=== PATIENT | male | born 1940 | race Caucasian/White ===

== ENCOUNTER 2018-04-27 18:07 | Observation (INO) | payer MEDICARE ==
[~2018-04-27] VITALS: Ht 175.3 cm; Wt 95.3 kg
[2018-04-27] MEDS ORDERED: CARAFATE1 G PO (18:14)
[2018-04-27] MEDS ORDERED: K-TAB10 MEQ PO (18:15)
[2018-04-27] MEDS ORDERED: LIPITOR40 MG PO (18:15)
[2018-04-27] MEDS ORDERED: FLUTICASONE PRO16 GM NASAL (18:15)
[2018-04-27] MEDS ORDERED: COREG12.5 MG PO (18:15)
[2018-04-27] MEDS ORDERED: BAYER CHEWABLE81 MG PO (18:16)
[2018-04-27] MEDS ORDERED: PROTONIX40 MG PO (18:16)
[2018-04-27] MEDS ORDERED: CENTRUM MEN'S1 EACH PO (18:16)
[2018-04-27] MEDS ORDERED: MELATONIN10 M1 PO (18:16)
--- NOTE | 2018-04-27 19:30 | NUR ---
PT PROVIDED URINAL FOR URINE SPECIMEN. PT AWAKE AND ALERT, PT FAMILY AT BEDSIDE.
--- NOTE | 2018-04-27 21:24 | NUR ---
RECEIVED FROM ER VIA STRETCHER. UNABLE TO TRANSFER HIMSELF TO THE BED. ALERT/ORIENTED TO NAME/ ONLY. VS STABLE. IV IN R AC WITH NS INFUSING STARTED IN ER. INFORMED THAT HE HAD FALLEN 4 TIMES IN THE PAST WEEK. STRICT FALL PRECAUTIONS NOTED. FAMILY MEMBERS PRESENT. ORIENTED TO ROOM AND CALL LIGHT.
--- NOTE | 2018-04-27 22:07 | NUR ---
LAB CALLED INFORMING THAT UNIT OF BLOOD IS READY? I DO NOT SHOW AN ORDER TO GIVE BLOOD. PATIENT'S HAS A BLOOD BAND ON AND SEE WHERE THERE WAS A TYPE AND CROSS DONE IN ER. CALLED ALEXA JOYNER "HOMER" RE: NEEDING AN ORDER FOR NUSE TO ADMIN BLOOD AND HOW MANY UNITS.
[2018-04-27 23:50] VITALS: BP 152/69
--- NOTE | 2018-04-27 23:55 | NUR ---
HIS DAUGHTER SIGNED BLOOD CONSENT FORM. PATIENT TO CONFUSED TO SIGN.
--- NOTE | 2018-04-28 00:30 | NUR ---
STARTED UNIT OF PRBC'S ORDERED.
--- NOTE | 2018-04-28 00:50 | NUR ---
VITAL SIGNS STABLE. OBTAINED URINE SPECIMEN FOR LAB ORDERED
[2018-04-28 01:12] VITALS: BP 152/69
[2018-04-28 01:14] LABS: APPEARANCE CLEAR (CLEAR); BILIRUBIN NEGATIVE (NEGATIVE); COLOR YELLOW (YELLOW); GLUCOSE NEGATIVE (NEGATIVE); KETONE NEGATIVE (NEGATIVE); NITRITE NEGATIVE (NEGATIVE); PROTEIN NEGATIVE (NEGATIVE); SPECIFIC GRAVITY 1.015 (1.005-1.020); UROBILINOGEN NORMAL (NORMAL)
--- NOTE | 2018-04-28 03:10 | NUR ---
BLOOD TRANSFUSION COMPLETED. VERY RESTLESS. WILL NOT STAY IN BED. FAMILY MEMBER SHOWED UP AND WILL STAY WITH HIM.
[2018-04-28 03:45] VITALS: BP 146/83
[2018-04-28 05:54] LABS: BASOPHILS 0.2 % (0-2); HEMATOCRIT 33.4 % (42.0-54.0); HEMOGLOBIN 9.1 g/dL (13.5-17.5); IMMATURE GRANULOCYTES 0.2 % (0-5); LYMPHOCYTES 14.6 % (15-50); MCH 21.4 pg (26.0-34.0); MCHC 27.2 g/dL (31.0-37.0); MCV 78.6 fL (80.0-100.0); MONOCYTES 12.8 % (2-11); NEUTROPHILS 69.2 % (40-80); PLATELET COUNT 128 10x3/uL (130-400); RBC 4.25 10x6/uL (4.20-6.10); RDW 17.1 % (11.5-14.5); WBC 5.1 10x3/uL (4.8-10.8)
[2018-04-28 07:04] LABS: ALBUMIN 3.1 g/dL (3.4-5.0); ALKALINE PHOSPHATASE 77 U/L (46-116); ALT (SGPT) 18 U/L (10-68); BILIRUBIN - TOTAL 0.82 mg/dL (0.2-1.3); CALC OSMOLALITY 291 mosm/kg (275-300); CALCIUM 7.8 mg/dL (8.5-10.1); CHLORIDE - SERUM 108 mmol/L (98-107); CKMB 3.2 U/L (0.0-3.6); CREATINE KINASE 264 UL (21-232); CREATININE - SERUM 0.8 mg/dL (0.6-1.3); GLUCOSE 95 mg/dL (74-106); MAGNESIUM - SERUM 1.9 mg/dL (1.8-2.4); POTASSIUM - SERUM 3.4 mmol/L (3.5-5.1); PROTEIN - SERUM 6.4 g/dL (6.4-8.2); SODIUM 146 mmol/L (136-145); UREA NITROGEN 14 mg/dL (7-18); eGFR NON AFRICAN AMERICAN > 90 mL/min (90-120)
[2018-04-28 07:34] LABS: TROPONIN-I 0.121 ng/mL (0.000-0.060)
--- NOTE | 2018-04-28 07:59 | NUR ---
REPORT RECEIVED. WILL CONTINUE WITH POC. PT CURRENTLY LYING SEMI FOWLERS. CALL LIGHT W/I REACH. PT IS AA AND ONLY ORIENTED TO PERSON AND SITUATION AND WITH GARBLED SPEECH. RR EVEN AND UNLABORED ON 2L 02. NO S/S OF DISTRESS NOTED. PT ASSISTED WITH URINAL WHERE PT VOIDED 150ML OF PALE YELLOW URINE. CLEANED PT AND APPLIED NEW GOWN. PT DENIES ANY NEEDS AT THIS TIME. WILL CTM.
[2018-04-28 08:51] VITALS: BP 186/100
--- NOTE | 2018-04-28 09:00 | NUR ---
PT BP @0800 WAS 186/100. ADMINISTERED ORDERED DOSE OF CLONIPIN AND BP DECREASED TO 166/85. PLACED TELEMETRY ON PT AND PT IS RUNNING 65 NORMAL SINUS RHYTHYM. WILL CTM.
[2018-04-28 12:39] VITALS: BP 177/101
[2018-04-28 13:36] VITALS: BMI 31.0
--- NOTE | 2018-04-28 13:38 | NUR ---
FIRST EKG PERFORMED AND PLACED IN CHART. 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 WILL CTM.
--- NOTE | 2018-04-28 14:15 | NUR ---
AGREE WITH VAC PRESS OPERATOR ASSESSMENT
[2018-04-28 15:12] LABS: CKMB 2.4 U/L (0.0-3.6); CREATINE KINASE 235 UL (21-232)
[2018-04-28 15:16] LABS: TROPONIN-I 0.107 ng/mL (0.000-0.060)
[2018-04-28 16:48] VITALS: Ht 175.3 cm; Wt 95.3 kg
--- NOTE | 2018-04-28 17:01 | NUR ---
PT CONTINUES TO HAVE EPISODES OF INTCONTINENCE AND SKIN STAYS SATURATED IN SPITE OF EFFORTS TO KEEP PT CLEAN. CALLED [facility]IN[facility] HARPER TO CHECK ABOUT POSSIBLE DAVEY PLACEMENT AND RECEIVED ORDERS FOR ACCURATE I&O DAVEY CATHETER PLACEMENT TO PREVENT FURTHER SKIN BREAKDOWN. WILL PLACE ORDER AND PLACE DAVEY CATHETER.
[2018-04-28 17:33] VITALS: BP 152/97
--- NOTE | 2018-04-28 17:44 | NUR ---
PLACED 16 [place] DAVEY CATHETER INTO PT PER DR ORDERS. RECEIVED IMMEDIATE 600ML OF MODERATE YELLOW URINE. STAT ELIUD PLACED AND DAVEY IN PLACE DRAINING URINE. PT TOLERATED WELL. WILL CTM.
[2018-04-28 20:00] VITALS: BP 160/91
--- NOTE | 2018-04-28 20:00 | NUR ---
HAVING ULTRASOUND DONE IN ROOM. FAMILY MEMBERS PRESENT.
[2018-04-28 20:01] LABS: CKMB 1.7 U/L (0.0-3.6); CREATINE KINASE 176 UL (21-232)
[2018-04-28 20:05] LABS: TROPONIN-I 0.093 ng/mL (0.000-0.060)
--- NOTE | 2018-04-28 20:30 | NUR ---
SET UP SUCTION FOR PATIENT'S EXCESSIVE SECRETIONS. ELEVATED HOB.
--- NOTE | 2018-04-28 21:40 | NUR ---
RECEIVING RESP UPDRAFT TX. FAMILY C/O HIS RESTLESSNESS, TRYING TO GET OUT OF BED, PULLING ON IV, TAMICA.
--- NOTE | 2018-04-28 23:45 | NUR ---
CALLED [facility] BURKETT APN TO INFORM OF PATIENT'S AGITATION, PULLING ON IV, DAVEY. ORDERED ATIVAN 0.5MG IV Q8H.
[2018-04-29] VITALS: BP 153/81
[2018-04-29 02:05] LABS: CREATINE KINASE 188 UL (21-232)
[2018-04-29 02:06] LABS: TROPONIN-I 0.103 ng/mL (0.000-0.060)
--- NOTE | 2018-04-29 02:09 | NUR ---
PULLED OUT IV. SWING HIS FIST AT ME AND KICKING WHILE I WAS TRYING TO HOLD 2X2 TO STOP THE BLEEDING. GROUP SUPERVISOR YARD'S ARRIVE TO ASSIST. CALLED [facility]URK[facility] AND RECEIVED ORDER TO GIVE GEODON 20MG PO BID PRN FOR HIS AGITATION. FAMILY MEMBER IS NOW PRESENT IN ROOM WITH HIM.
--- NOTE | 2018-04-29 02:35 | NUR ---
SWALLOWED THE GEODON CAP AFTER SPITTING IT OUT 4 TIMES. SOME OF THE POWDER CONTENTS SPILLED OUT ON HIS GOWN. HOPEFUL GOT ENOUGH TO HELP HIM.
[2018-04-29 04:00] VITALS: BP 175/83
--- NOTE | 2018-04-29 04:36 | NUR ---
RESITED IV IN LEFT FA 20G. CUFF SLITTER ASSITED WITH HOLDING HIS ARM.
--- NOTE | 2018-04-29 06:30 | NUR ---
REPOSITIONED UP IN BACK AND TO RIGHT SIDE WITH PILLOW TO HIS BACK. SUCTION EXCRETIONS FROM HIS MOUTH. SNORING LOUDLY. LEGS AND ARMS ARE JERKY.
[2018-04-29 06:44] LABS: ALBUMIN 3.2 g/dL (3.4-5.0); ALKALINE PHOSPHATASE 90 U/L (46-116); ALT (SGPT) 16 U/L (10-68); BILIRUBIN - TOTAL 1.03 mg/dL (0.2-1.3); CALC OSMOLALITY 289 mosm/kg (275-300); CALCIUM 7.9 mg/dL (8.5-10.1); CARBON DIOXIDE 32.3 mmol/L (21.0-32.0); CHLORIDE - SERUM 105 mmol/L (98-107); CREATININE - SERUM 0.8 mg/dL (0.6-1.3); GLUCOSE 113 mg/dL (74-106); POTASSIUM - SERUM 3.6 mmol/L (3.5-5.1); PROTEIN - SERUM 6.6 g/dL (6.4-8.2); SODIUM 145 mmol/L (136-145); UREA NITROGEN 13 mg/dL (7-18); eGFR NON AFRICAN AMERICAN > 90 mL/min (90-120)
[2018-04-29 07:09] LABS: BASOPHILS 0.3 % (0-2); EOSINOPHILS 1.5 % (0-7); HEMATOCRIT 36.1 % (42.0-54.0); HEMOGLOBIN 9.8 g/dL (13.5-17.5); IMMATURE GRANULOCYTES 0.5 % (0-5); LYMPHOCYTES 11.3 % (15-50); MCH 21.5 pg (26.0-34.0); MCHC 27.1 g/dL (31.0-37.0); MCV 79.2 fL (80.0-100.0); MONOCYTES 8.8 % (2-11); NEUTROPHILS 77.6 % (40-80); PLATELET COUNT 140 10x3/uL (130-400); RBC 4.56 10x6/uL (4.20-6.10); RDW 17.1 % (11.5-14.5); WBC 7.8 10x3/uL (4.8-10.8)
--- NOTE | 2018-04-29 08:00 | NUR ---
RESPIRATORY ARRIVES TO ROOM FOR MORNING UPDRAFT. PATIENT STOPS BREATHING. NO PULSE PALPATED. CODE BLUE CALLED. SPOKE WITH FAMILY REGARDING CODE STATUS. FAMILY REFUSE INTUBATION. MED CODE ONLY. SEE CODE SHEET ON CHART.
--- NOTE | 2018-04-29 09:54 | NUR ---
WENT INTO PT ROOM TO GIVE BREATHING TX, PT SNORING LOUDLY, SPIT IN PTS MOUTH, SUCKED OUT WITH YAUNKER, BREATHING TX STARTED. CHARTING ON COMPUTER WHEN FAMILY COMES IN, PT SNORING, PT STOPS SNORING. FAMILY STATES PT MIGHT NOT BE BREATHING. RUN OUT OF ROOM CALLING FOR HELP AND A CODE BLUE TO BE CALLED.
--- NOTE | 2018-04-29 11:39 | NUR ---
0957-SPOKE WITH [facility] [employer] [facility] AND OBTAINED RELEASE OF BODY. 0959-CALL [facility]. SPOKE WITH [facility]. WILL RETURN CALL FOR REFERENCE NUMBER. 1000-NOTIFY [facility] PER PATIENT FAMILY REQUEST. 0549-CALL [facility] BACK FOR REFERENCE NUMBER. HOME ARRIVES FOR BODY.
--- NOTE | 2018-04-29 12:20 | NUR ---
[facility]TA WITH [facility] CALLS BACK WITH REFERENCE NUMBER. RELEASE OF BODY APPROVED. PATIENT TRANSPORTED TO [facility]IA [facility].
--- NOTE | 2018-04-30 08:23 | MORECARE ---
CASE MANAGEMENT DISCHARGE SUMMARY PATIENT: ANKUSH ROSE UNIT: [id number] ADM DATE: 04/27/18 AGE: 77 : 38 SEX: M ROOM/BED: D.2139 AUTHOR: EARNESTINE AVILES PHYSICIAN: REFERRING PHYSICIAN: CHRISS PARR MD DATE OF SERVICE: 04/30/18 Discharge Plan Patient Name: ANKUSH ROSE Facility: [facility]:[place] : 1940 Planned Disposition: Home Anticipated Discharge Date: 04/29/18 Discharge Date: 04/29/2018 Expected LOS: 2 Initial Reviewer: [email or web address] Initial Review Date: 04/30/2018 Generated: 04/30/18 9:22 am Coverage Notice Reviewer: [email or web address] Amaury Colunga Notice Issued Date-Time: 04/28/2018 15:20 Notice Type: Medicare Outpatient Observation Notice Notice Delivered To: Family Member Relationship to Patient: Daughter in Law Cylinder Machine Operator Pulp Drier Name: Camilla ROSE Delivery Method: HAND - Hand Delivered Erin Days: Prior Verbal Notification: Recipient Understood Notice: Yes Recipient Signature: Yes Med Rec Note Co-signed by Attending: Coverage Notice Comment: PATIENT MUMBLED AND KEPT POINTING AT HIS DAUGHTER IN LAW AT BEDSIDE. I ASKED IF HE WANTED ME TO TALK TO HER, HE SHOOK HEAD YES. WHEN ASKED ABOUT SIGNING, HE POINTED TO HER. Patient Name: ANKUSH ROSE Page [phone] at 0823 All edits/amendments must be made on the electronic document DICTATION DATE: 04/30/18821 CUBING MACHINE TENDER: VARUN 04/30/18821 RPT#: [id number] DC DATE:04/29/18 STATUS: DIS IN [facility] [address] [place] [address] END OF REPORT
== END 2018-04-29 12:22 ==
LOC: D.ER 18:07 → OBSVTIME 19:53 → D.M2 19:53
PROVIDERS: Emergency Medicine; Family Medicine; ADMIT Internal Medicine Nephrology; ATTEND Internal Medicine Nephrology
DX: I16.0 Hypertensive urgency (principal); D64.9 Anemia, unspecified; N39.0 Urinary tract infection, site not specified; Z86.73 Personal history of transient ischemic attack (TIA), and cerebral infarction without residual deficits; J18.9 Pneumonia, unspecified organism; R79.89 Other specified abnormal findings of blood chemistry; G93.41 Metabolic encephalopathy; E78.5 Hyperlipidemia, unspecified; Z95.0 Presence of cardiac pacemaker; R47.01 Aphasia; R47.81 Slurred speech